=== PATIENT | female | born 1975 | race Caucasian/White ===

== ENCOUNTER 2016-11-08 09:52 | Emergency (ER) | payer MEDICAID, OTHER ==
[~2016-11-08] VITALS: Ht 167.6 cm; Wt 70.0 kg
[~2016-11-08 09:52] MED LIST: HYDR-523 PO
[2016-11-08] MEDS ORDERED: KETOROLAC 30MG/ML VIAL IV ONE (10:30)
[2016-11-08 10:55] LABS: BASOPHILS % 0.4 % (0.0-2.0); EOSINOPHILS % 0.6 % (0.0-5.0); HEMATOCRIT. 36.1 % (36.0-48.0); HEMOGLOBIN. 12.3 g/dL (12.0-16.0); LYMPHOCYTES % 33.1 % (20.0-50.0); MEAN CORPUSCULAR HEMOGLOBIN 29.2 pg (28.0-32.0); MEAN CORPUSCULAR VOLUME 85.9 fL (81.0-99.0); MEAN PLATELET VOLUME 8.7 fl (7.4-10.4); MONOCYTES % 6.3 % (2.0-8.0); NEUTROPHILS % 59.6 % (40.0-76.0); PLATELET 209 x1000/uL (130-400); RED BLOOD CELL COUNT 4.21 mill/uL (4.2-5.4); RED CELL DISTRIBUTION WIDTH 13.4 % (11.6-14.6)
[2016-11-08 11:03] LABS: HCG SCREEN NEGATIVE
[2016-11-08 11:07] LABS: CARBON DIOXIDE 27 mEq/L (21-32); CHLORIDE 106 mEq/L (98-107)
[2016-11-08 11:11] LABS: TROPONIN I < 0.02 ng/mL (0.00-0.04)
[2016-11-08 11:33] LABS: *AMPHETAMINES SCREEN URINE NEGATIVE (NEGATIVE); *BARBITURATES SCREEN URINE NEGATIVE (NEGATIVE); *BENZODIAZEPINES SCREEN URINE NEGATIVE (NEGATIVE); *COCAINE SCREEN URINE NEGATIVE (NEGATIVE); CANNABINOID URINE SCREEN NEGATIVE (NEGATIVE); METHADONE URINE SCREEN NEGATIVE (NEGATIVE); PHENCYCLIDINE URINE SCREEN NEGATIVE (NEGATIVE)
[2016-11-08 11:51] LABS: OPIATES URINE SCREEN PRESUMTIVE POSITIVE (NEGATIVE)
[2016-11-08] MEDS ORDERED: ACETAMINOPHEN 325MG TABLET PO ONE (13:00)
[2016-11-08 14:10] VITALS: BP 100/61
== END 2016-11-08 14:50 | disposition home or self-care (01) ==
LOC: ER 10:08
DX: R55 Syncope and collapse (principal); M32.9 Systemic lupus erythematosus, unspecified; R07.2 Precordial pain; R51 Headache; F11.90 Opioid use, unspecified, uncomplicated; W19.XXXA Unspecified fall, initial encounter; Y93.89 Activity, other specified; Y92.89 Other specified places as the place of occurrence of the external cause; Y99.0 Civilian activity done for income or pay
CPT/HCPCS: 36415; 70450; 71010; 80053; 80305; 84484; 84703; 85025; 93005; 96374; 99285; J1885; Z7610